=== PATIENT | male | born 1955 ===

== ENCOUNTER 2017-07-06 13:45 | Emergency (ER) | payer OTHER ==
[2017-07-06 13:52] VITALS: BP 134/71; PULSE 74; RESP 16; TEMP 96; O2SAT 100
[2017-07-06] MEDS ORDERED: Sodium Chloride 0.9% 1,000 ML IV STA (14:28)
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
[2017-07-06 15:07] LABS: BASO # 0.1 K/uL (0.0-0.2); BASO % 1.1 % (0.0-2.0); EOS # 0.1 K/uL (0.0-0.7); EOS % 1.2 % (0.0-4.0); HEMATOCRIT 39.7 % (35.0-51.0); LYMPH # 2.1 K/uL (1.0-4.3); LYMPH % 21.9 % (20.0-40.0); MEAN CELL VOLUME 93.1 fl (80.0-94.0); MEAN CORPUSCULAR HEMOGLOBIN 31.3 pg (27.0-31.0); MEAN CORPUSCULAR HGB CONC 33.6 g/dL (33.0-37.0); MEAN PLATELET VOLUME 8.8 fl (7.2-11.7); MONO # 0.4 K/uL (0.0-0.8); MONO % 4.3 % (0.0-10.0); NEUT # 6.7 K/uL (1.8-7.0); NEUT % 71.5 % (50.0-75.0); RED CELL DISTRIBUTION WIDTH 13.3 % (11.5-14.5); WHITE BLOOD COUNT 9.4 K/uL (4.8-10.8)
[2017-07-06 15:15] LABS: ALB/GLOB RATIO 1.3 (1.0-2.1); ALKALINE PHOSPHATASE 240 U/L (38-126); ALT/SGPT 141 U/L (21-72); AST/SGOT 61 U/L (17-59); BILIRUBIN,TOTAL 0.3 mg/dl (0.2-1.3); BLOOD UREA NITROGEN 19 mg/dl (9-20); CALCIUM 9.7 mg/dL (8.4-10.2); CARBON DIOXIDE 29 mmol/L (22-30); CHLORIDE 101 mmol/L (98-107); GFR AFRICAN-AMERICAN > 60; GLUCOSE,RANDOM 117 mg/dL (75-110); MAGNESIUM 1.9 MG/DL (1.6-2.3); POTASSIUM 4.1 MMOL/L (3.6-5.0); SODIUM 140 mmol/l (132-148); TOTAL PROTEIN 7.3 G/DL (6.3-8.2)
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
--- NOTE | 2017-07-08 11:38 | CARD ---
APPROVED REPORT EKG Measurement Heart [id number] <Conclusion> Normal sinus rhythm Possible Left atrial enlargement Left axis deviation Abnormal ECG
== END 2017-07-06 17:27 | disposition home or self-care (01) ==
LOC: H.ER 13:45
DX: R07.89 Other chest pain (principal); K59.00 Constipation, unspecified
CPT/HCPCS: 71020; 80053; 83735; 84484; 85025; 93005; 96361; 96374; 96375; 99283; J1885; J2405; J7040